=== PATIENT | male | born 1950 | race Caucasian/White ===

== ENCOUNTER 2018-03-18 16:38 | Emergency (ER) | payer BC ==
--- NOTE | 2018-03-18 19:48 | RADIOLOGY REPORT (SQ) ---
EXAM DESCRIPTION: CHEST 2 VIEWS COMPLETED DATE/TIME: 03/18/2018 7:30 pm REASON FOR STUDY: cough COMPARISON: None. EXAM PARAMETERS: NUMBER OF VIEWS: two views TECHNIQUE: Digital Frontal and Lateral radiographic views of the chest acquired. RADIATION DOSE: NA LIMITATIONS: none FINDINGS: LUNGS AND PLEURA: No opacities, masses or pneumothorax. No pleural effusion. MEDIASTINUM AND HILAR STRUCTURES: No masses or contour abnormalities. HEART AND VASCULAR STRUCTURES: Heart normal size. No evidence for failure. BONES: No acute findings. HARDWARE: None in the chest. OTHER: No other significant finding. IMPRESSION: NO ACUTE RADIOGRAPHIC FINDING IN THE CHEST. TECHNICAL DOCUMENTATION: JOB ID: [id number] [employer] All Rights Reserved Reading location - IP/workstation name: [email or web address]
[2018-03-18 20:05] LABS: HEMATOCRIT 36.8 % (37.9-51.0); HEMOGLOBIN 12.9 g/dL (13.5-17.0); MEAN CORPUSCULAR HGB CONC 35.1 g/dL (32.0-36.0); MEAN CORPUSCULAR VOLUME 86 fl (80-97); PLATELET COUNT 191 10^3/uL (150-450); RED BLOOD COUNT 4.29 10^6/uL (4.35-5.55); RED CELL DISTRIBUTION WIDTH 13.2 % (11.5-14.0); WHITE BLOOD COUNT 6.7 10^3/uL (4.0-10.5)
[2018-03-18 20:17] LABS: ANION GAP 10 (5-19); BLOOD UREA NITROGEN 22 mg/dL (7-20); CALCIUM 9.3 mg/dL (8.4-10.2); CARBON DIOXIDE 32 mmol/L (22-30); CHLORIDE 93 mmol/L (98-107); GLUCOSE 102 mg/dL (75-110); POTASSIUM 3.5 mmol/L (3.6-5.0); SODIUM 135.1 mmol/L (137-145)
[2018-03-18 20:22] LABS: ABSOLUTE LYMPHOCYTES# (MANUAL) 1.9 10^3/uL (0.5-4.7); ABSOLUTE MONOCYTES # (MANUAL) 0.7 10^3/uL (0.1-1.4); ABSOLUTE NEUTROPHILS# (MANUAL) 3.4 10^3/uL (1.7-8.2); BAND NEUTROPHILS % (MANUAL) 2 % (3-5); BASOPHILS % (MANUAL) 0 % (0-2); EOSINOPHILS % (MANUAL) 10 % (0-6); LYMPHOCYTES % (MANUAL) 24 % (13-45); MONOCYTES % (MANUAL) 10 % (3-13); SEGMENTED NEUTROPHILS % (MAN) 49 % (42-78); TOTAL CELLS COUNTED 100
[2018-03-18 20:25] LABS: PLATELET COMMENT ADEQUATE; RBC MORPHOLOGY COMMENT NORMO-CYTIC/CHROMIC
--- NOTE | 2018-03-18 20:51 | ER Document Report ---
ED General - General Chief Complaint: Fever Stated Complaint: FEVER, DIARRHEA Time Seen by Provider: 03/18/18 17:59 Mode of Arrival: Ambulatory Information source: Patient TRAVEL OUTSIDE OF THE [place] IN LAST 30 DAYS: No - HPI Patient complains to provider of: Fatigue Onset: Other - This 68-year-old man presented for evaluation of generalized fatigue and low-grade fevers over the last 2 days for which he was evaluated in urgent care and told he likely has strep throat, he was prescribed azithromycin as well as Hycet for any pains he might have. He is continued to feel little bit unwell today because he was already on the antibiotic and his are concerned and wanted to be evaluated further as they had called the physician and he noted that there may be a pneumonia developing so he goes to the emergency room. Quality of pain: No pain Severity: Mild - Related Data Allergies/Adverse Reactions: No Known Allergies Allergy (Verified 03/18/18 16:38) Past Medical History - General Information source: Patient, Relative - Social History Smoking Status: Never Smoker Chew tobacco use (# tins/day): No Frequency of alcohol use: None Drug Abuse: None Family History: None Patient has suicidal ideation: No Patient has homicidal ideation: No - Past Medical History Cardiac Medical History: Reports: Hx Hypercholesterolemia, Hx Hypertension Denies: Hx Heart Attack Comment Only: Hx Coronary Artery Disease - high chol Pulmonary Medical History: Denies: Hx Asthma, Hx Bronchitis, Hx COPD, Hx Pneumonia Neurological Medical History: Denies: Hx Cerebrovascular Accident, Hx Seizures Renal/ Medical History: Denies: Hx Peritoneal Dialysis Musculoskeletal Medical History: Denies Hx Arthritis Past Surgical History: Reports: Hx Abdominal Surgery - hernia repair, Hx Cholecystectomy - Immunizations Hx Diphtheria, Pertussis, Tetanus Vaccination: Yes Review of Systems - Review of Systems -: Yes All other systems reviewed and negative Physical Exam - Vital signs Vitals: Temp Pulse Resp BP Pulse Ox 98.3 F 83 16 121/61 95 03/18/18 16:42 03/18/18 16:42 03/18/18 16:42 03/18/18 16:42 03/18/18 16:42 - General General appearance: Appears well In distress: None - HEENT Head: Normocephalic Eyes: Normal Conjunctiva: Normal Cornea: Normal Extraocular movements intact: Yes Eyelashes: Normal Pupils: PERRL - Respiratory Respiratory status: No respiratory distress Chest status: Nontender Breath sounds: Normal Chest palpation: Normal - Cardiovascular Rhythm: Regular Heart sounds: Normal auscultation Murmur: No - Abdominal Inspection: Normal Distension: No distension Tenderness: Nontender - Back Back: Normal - Extremities General upper extremity: Normal inspection, Nontender, Normal ROM, Normal strength General lower extremity: Normal inspection, Nontender, Normal ROM, Normal strength - Neurological Neuro grossly intact: Yes Cognition: Normal Orientation: AAOx4 James Coma Scale Eye Opening: Spontaneous [place] Coma Scale Verbal: Oriented James Coma Scale Motor: Obeys Commands James Coma Scale Total: 15 Speech: Normal Cranial nerves: Normal Motor strength normal: LUE, RUE, LLE, RLE - Psychological Associated symptoms: Normal affect Course - Re-evaluation Re-evalutation: 03/19/18 04:40 This overall well-appearing 68-year-old man presented for evaluation of persistent symptoms following initiation of treatment with azithromycin for strep throat. On examination the gentleman does not have a sore throat, does not have purulent tonsillar exudates or other symptoms no shotty cervical adenopathy, exceptionally unlikely this patient has strep throat at this time. Spoke about management options including but not limited to further testing they were in agreement that we would obtain a chest x-ray as well as basic labs as the patient is on chlorthalidone and it may have altered his electrolyte balance. Chest x-ray does not demonstrate any infiltrate, chemistry does not demonstrate any obvious injury or dehydration. Given the patient's well appearance overall believe that is likely safe for discharge at this time do not believe this represents more serious underlying condition such as bacteremia brewing sepsis or otherwise. He will follow-up in the coming days for further evaluation reassessment. - Vital Signs Vital signs: Temp Pulse Resp BP Pulse Ox 98.1 F 74 16 118/65 93 03/18/18 20:55 03/18/18 20:55 03/18/18 20:55 03/18/18 20:55 03/18/18 20:55 - Laboratory Result Diagrams: 03/18/18 19:42 03/18/18 19:42 Laboratory results interpreted by me: 03/18/18 03/18/18 19:42 19:42 RBC 4.29 L Hgb 12.9 L Hct 36.8 L Band Neutrophils % 2 L Eosinophils % (Manual) 10 H Absolute Eos (Manual) 0.7 H Sodium 135.1 L Potassium 3.5 L Chloride 93 L Carbon Dioxide 32 H BUN 22 H Discharge - Discharge Clinical Impression: Viral infection Fever Qualifiers: Fever type: unspecified Qualified Code(s): R50.9 - Fever, unspecified Condition: Good Disposition: HOME, SELF-CARE Instructions: Acetaminophen, Fever ([facility]), Viral Syndrome ([facility]) Forms: Return to Work Referrals: MARIA INES MCKEE MD [Primary Care Provider] - Follow up as needed
[2018-03-18 20:58] VITALS: BP 118/65
== END 2018-03-18 20:58 | disposition home or self-care (01) ==
LOC: ER 16:38
DX: B34.9 Viral infection, unspecified (principal); R50.9 Fever, unspecified; R53.83 Other fatigue; I25.10 Atherosclerotic heart disease of native coronary artery without angina pectoris; I10 Essential (primary) hypertension; Z79.899 Other long term (current) drug therapy
CPT/HCPCS: 36415; 71046; 80048; 85025; 99284